=== PATIENT | male | born 1970 | race Caucasian/White ===

== ENCOUNTER 2017-03-05 08:36 | Outpatient (CLI) | payer BC ==
[2017-03-05 09:04] LABS: #Basophils 0.1 thou/uL (0.0-0.2); #Eosinphils 0.1 thou/uL (0.0-0.7); #Monocytes 0.4 thou/uL (0.11-0.59); #Neutrophils 1.9 thou/uL (1.40-6.50); %Basophils 1.7 % (0.0-1.0); %Eosinophils 1.3 % (0.0-10.0); %Lymphocytes 45.8 % (21.0-51.0); %Monocytes 7.9 % (0.0-10.0); %Neutrophils 43.4 % (42.0-75.0); Hemoglobin 14.9 g/dL (14.0-18.0); Mean Corpuscular HGB CONC 32.6 g/dL (32.0-36.0); Mean Corpuscular Hemoglobin 28.8 pg (27.0-31.0); Mean Corpuscular Volume 88.2 fl (80.0-94.0); Mean Platelet Volume 8.6 fL (7.4-10.4); Platelet Count 248 thou/uL (130-400); RBC Distribution Width 12.5 % (11.5-14.5); Red Blood Cell (RBC) Count 5.17 mill/uL (4.70-6.10); White Blood Cell (WBC) Count 4.4 thou/uL (4.8-10.8)
[2017-03-05 09:05] LABS: Hemoglobin A1c 5.4 % (4.0-6.0)
[2017-03-05 10:12] LABS: ALT (SGPT) 28 U/L (8-55); AST (SGOT) 19 U/L (5-34); Albumin 4.2 g/dL (3.5-5.0); Alkaline Phosphatase 104 U/L (40-150); Anion Gap 10 mmol/L (10-20); BUN (Urea Nitrogen) 12 mg/dL (8.9-20.6); Bilirubin, Total 0.7 mg/dL (0.2-1.2); Calc. Creatinine Clearance 0 mL/min (70-130); Calcium 10.5 mg/dL (7.8-10.44); Carbon Dioxide 25 mmol/L (22-29); Cardiac Risk 4.8 (Less than 4.5); Chloride 110 mmol/L (98-107); Cholesterol 196 mg/dl (< 200 Desired); Estimated GFR-MDRD 82; Globulin 3.6 g/dL (2.4-3.5); Glucose 97 mg/dL (70-105); HDL Cholesterol 41 mg/dL (>60 Neg Risk); LDL Cholesterol, Calculated 135 mg/dL; Potassium 4.2 mmol/L (3.5-5.1); Protein, Total 7.8 g/dL (6.0-8.3); Sodium 141 mmol/L (136-145); Triglycerides 98 mg/dL (Less than 150)
[2017-03-05 10:16] LABS: Vitamin D, 25 Hydroxy 15.2 ng/ml (> 30.0)
== END 2017-03-05 08:37 | disposition home or self-care (01) ==
LOC: MADLABBHPM 08:36
PROVIDERS: ATTEND Family Medicine
DX: Z00.00 Encounter for general adult medical examination without abnormal findings (principal)
CPT/HCPCS: 36415; 80053; 80061; 82306; 83036; 84443; 85025

== ENCOUNTER 2017-09-25 07:36 | Emergency (ER) | payer BC ==
[2017-09-25] MEDS ORDERED: Tobramycin Sulfate 0.3% Ophth Susp 5 ml Bottle ONE (08:10)
== END 2017-09-25 08:15 | disposition home or self-care (01) ==
LOC: MADERS 07:36
DX: H10.9 Unspecified conjunctivitis (principal)
CPT/HCPCS: 99283

== ENCOUNTER 2018-03-27 19:09 | Emergency (ER) | payer BC ==
[2018-03-27] MEDS ORDERED: Doxycycline 100 MG CAP ONE (20:10)
--- NOTE | 2018-03-27 20:37 | RAD ---
TWO VIEWS OF THE CHEST: 03/27/18 COMPARISON: 03/06/16 HISTORY: Cough. FINDINGS: There is a subtle area of asymmetric density in the right suprahilar region just lateral to the right hilum, new. No pneumothorax or pleural fluid. No focal consolidation or alveolar edema. IMPRESSION: New focal asymmetric area of increased density in the right perihilar region is suspicious for infect ious pneumonitis given history of cough. Recommend followup imaging following treatment to document r esolution. POS: [facility]
== END 2018-03-27 20:15 | disposition home or self-care (01) ==
LOC: MADERS 19:09
DX: J18.9 Pneumonia, unspecified organism (principal)
CPT/HCPCS: 71046; J7620

== ENCOUNTER 2018-05-03 11:40 | Emergency (ER) | payer BC ==
[2018-05-03] MEDS ORDERED: Ibuprofen 800 MG TAB ONE (13:07)
== END 2018-05-03 13:13 | disposition home or self-care (01) ==
LOC: MADERS 11:40
DX: K02.9 Dental caries, unspecified (principal)
CPT/HCPCS: 99282

== ENCOUNTER 2018-11-01 13:33 | Emergency (ER) | payer BC | END 2018-11-01 14:00 | disposition home or self-care (01) | LOC: MADERS 13:33 | DX: J06.9 Acute upper respiratory infection, unspecified (principal) | CPT/HCPCS: 99281 ==

== ENCOUNTER 2019-05-19 11:39 | Emergency (ER) | payer BC ==
[2019-05-19 12:21] LABS: #Basophils 0.1 thou/uL (0.0-0.2); #Eosinphils 0.1 thou/uL (0.0-0.7); #Lymphocytes 2.3 thou/uL (1.20-3.40); #Monocytes 0.3 thou/uL (0.11-0.59); #Neutrophils 2.3 thou/uL (1.40-6.50); %Basophils 2.7 % (0.0-1.0); %Eosinophils 1.7 % (0.0-10.0); %Lymphocytes 44.7 % (21.0-51.0); %Monocytes 6.6 % (0.0-10.0); %Neutrophils 44.4 % (42.0-75.0); Hemoglobin 14.8 g/dL (14.0-18.0); Mean Corpuscular HGB CONC 32.3 g/dL (32.0-36.0); Mean Corpuscular Hemoglobin 27.9 pg (27.0-31.0); Mean Corpuscular Volume 86.3 fL (78.0-98.0); Mean Platelet Volume 7.3 fL (7.4-10.4); Platelet Count 258 thou/uL (130-400); Red Blood Cell (RBC) Count 5.29 mill/uL (4.70-6.10); White Blood Cell (WBC) Count 5.2 thou/uL (4.8-10.8)
[2019-05-19 12:41] LABS: ALT (SGPT) 39 U/L (8-55); AST (SGOT) 25 U/L (5-34); Albumin 4.4 g/dL (3.5-5.0); Alkaline Phosphatase 110 U/L (40-150); Anion Gap 12 mmol/L (10-20); BUN (Urea Nitrogen) 13 mg/dL (8.9-20.6); Bilirubin, Total 0.6 mg/dL (0.2-1.2); Calc. Creatinine Clearance 0 mL/min (70-130); Calcium 11.6 mg/dL (7.8-10.44); Carbon Dioxide 22 mmol/L (22-29); Chloride 109 mmol/L (98-107); Estimated GFR-MDRD Greater than 90; Globulin 3.4 g/dL (2.4-3.5); Glucose 84 mg/dL (70-105); Potassium 4.4 mmol/L (3.5-5.1); Protein, Total 7.8 g/dL (6.0-8.3); Sodium 139 mmol/L (136-145)
--- NOTE | 2019-05-19 12:43 | RAD ---
PORTABLE UPRIGHT FRONTAL CHEST RADIOGRAPH: DATE: 05/19/2019. COMPARISON: 03/27/2018. HISTORY: Chest pain. FINDINGS: No pneumothorax, pleural fluid, focal consolidation, or alveolar edema. Heart and mediastinal contou rs are unremarkable. IMPRESSION: No acute findings. POS: OFF
== END 2019-05-19 13:40 | disposition home or self-care (01) ==
LOC: MADERS 11:39
DX: R07.9 Chest pain, unspecified (principal)
CPT/HCPCS: 71045; 80053; 83880; 84484; 85025; 93005

== ENCOUNTER 2020-01-21 19:27 | Emergency (ER) | payer BC | END 2020-01-21 19:54 | disposition home or self-care (01) | LOC: MADERS 19:27 | DX: S61.211A Laceration without foreign body of left index finger without damage to nail, initial encounter (principal); W31.2XXA Contact with powered woodworking and forming machines, initial encounter | CPT/HCPCS: 99282 ==

== ENCOUNTER 2021-02-07 16:27 | Emergency (ER) | payer BC | END 2021-02-07 17:00 | disposition home or self-care (01) | LOC: MADERS 16:27 | DX: J30.9 Allergic rhinitis, unspecified (principal) | CPT/HCPCS: 99283 ==

== ENCOUNTER 2021-05-05 08:04 | Emergency (ER) | payer BC ==
[2021-05-05 23:40] LABS: SARS-CoV-2 PCR by NAA Not Detected (NotDetected)
== END 2021-05-05 08:57 | disposition home or self-care (01) ==
LOC: MADERS 08:04
DX: Z20.822 Contact with and (suspected) exposure to COVID-19 (principal)
CPT/HCPCS: 99283; U0003; U0005

== ENCOUNTER 2021-09-15 10:55 | Emergency (ER) | payer BC ==
[2021-09-16 15:26] LABS: SARS-CoV-2 PCR by NAA Not Detected (NotDetected)
== END 2021-09-15 11:30 | disposition home or self-care (01) ==
LOC: MADERS 10:55
DX: Z20.822 Contact with and (suspected) exposure to COVID-19 (principal)
CPT/HCPCS: 99283; U0003; U0005

== ENCOUNTER 2022-02-01 09:03 | Emergency (ER) | payer BC ==
[2022-02-01] MEDS ORDERED: Amoxicillin/Potassium Clav 875 MG TAB ONE (09:37)
== END 2022-02-01 09:54 | disposition home or self-care (01) ==
LOC: MADERS 09:03
DX: J03.90 Acute tonsillitis, unspecified (principal)
CPT/HCPCS: 87081; 87430; 99283

== ENCOUNTER 2022-10-25 10:56 | Emergency (ER) | payer BC, OTHER ==
[2022-10-25 11:45] LABS: #Basophils 0.1 thou/uL (0.0-0.2); #Eosinphils 0.1 thou/uL (0.0-0.7); #Lymphocytes 2.1 thou/uL (1.20-3.40); #Monocytes 0.4 thou/uL (0.11-0.59); #Neutrophils 3.1 thou/uL (1.40-6.50); %Basophils 1.8 % (0.0-1.0); %Eosinophils 1.3 % (0.0-10.0); %Lymphocytes 35.9 % (21.0-51.0); %Monocytes 6.1 % (0.0-10.0); %Neutrophils 54.8 % (42.0-75.0); Hemoglobin 15.5 g/dL (14.0-18.0); Mean Corpuscular HGB CONC 32.1 g/dL (32.0-36.0); Mean Corpuscular Hemoglobin 27.7 pg (27.0-31.0); Mean Corpuscular Volume 86.5 fl (78.0-98.0); Platelet Count 273 10x3/uL (130-400); RBC Distribution Width 11.8 % (11.5-14.5); White Blood Cell (WBC) Count 5.7 10x3/uL (4.8-10.8)
[2022-10-25 12:03] LABS: ALT (SGPT) 34 U/L (8-55); AST (SGOT) 20 U/L (5-34); Albumin 3.9 g/dL (3.5-5.0); Alkaline Phosphatase 89 U/L (40-110); Anion Gap 10 mmol/L (10-20); BUN (Urea Nitrogen) 11 mg/dL (8.4-25.7); Bilirubin, Total 0.5 mg/dL (0.2-1.2); Calc. Creatinine Clearance 0 mL/min (70-130); Calcium 10.6 mg/dL (7.8-10.44); Carbon Dioxide 22 mmol/L (22-29); Chloride 113 mmol/L (98-107); Estimated GFR 106; Globulin 2.7 g/dL (2.4-3.5); Glucose 92 mg/dL (70-105); Lipase 14 U/L (8-78); Magnesium 2.1 mg/dL (1.6-2.6); Potassium 4.2 mmol/L (3.5-5.1); Protein, Total 6.6 g/dL (6.0-8.3); Sodium 141 mmol/L (136-145)
[2022-10-25] MEDS ORDERED: Ondansetron ODT 4 MG TAB ONE (12:07)
== END 2022-10-25 12:20 | disposition home or self-care (01) ==
LOC: MADERS 10:56
DX: K52.9 Noninfective gastroenteritis and colitis, unspecified (principal)
CPT/HCPCS: 36415; 80053; 83690; 83735; 85025; 99284; Q0162